=== PATIENT | female | born 1975 | race Caucasian/White ===

== ENCOUNTER 2017-07-13 11:08 | Emergency (ER) | payer SELFPAY ==
[2017-07-13 11:24] VITALS: BP 147/86
--- NOTE | 2017-07-13 11:26 | UC ---
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 the [employer] - History of Current Complaint Chief Complaint: UCBackPain Stated Complaint: BACK INJURY WC Time Seen by Provider: 07/13/17 11:18 Hx Obtained From: Patient Hx Last Menstrual Period: 07/08/17 ?: No Onset/Duration: Sudden Onset, Lasting Days - 1, Still Present Timing: Constant Severity Initially: Moderate Severity Currently: Moderate Pain Intensity: 8 Pain Scale Used: 0-10 Numeric Back Pain: Is Discrete @ - left side of spine Character: Aching, Throbbing, Spasmodic, Stiffness Aggravating: Movement Alleviating: Rest Related History: Occupational Injury - Allergies/Home Medications Allergies/Adverse Reactions: Allergies Allergy/AdvReac Type Severity Reaction Status Date / Time Sulfamethoxazole Allergy Severe Hives Verified 07/13/17 11:24 w/Trimethoprim [From ] PMH/Surg Hx/FS Hx/Imm Hx Previously Healthy: No Neurological History: Migraine Psychological History: Depression Other History Of: Negative For: HIV, Hepatitis B, Hepatitis C, Anticoagulant Therapy - Surgical History Surgical History: Yes Surgery Procedure, Year, and Place: eyes at age 2.5 yrs old (muscle correction for crossed eyes),TUBAL LIGATION. REMOVAL OF FIBROID UTERINE TUMOR - Family History Known Family History: Positive: None, Hypertension - Social History Occupation: Employed Full-time Lives: With Family Alcohol Use: None Substance Use Type: None Smoking Status (MU): Current Every Day Smoker Type: Cigarettes Amount Used/How Often: 1 PPD Have You Smoked in the Last Year: Yes Household Exposure Type: Cigarettes Review of Systems Constitutional: Negative Skin: Negative Eyes: Negative ENT: Negative Respiratory: Negative Cardiovascular: Negative Gastrointestinal: Negative Genitourinary: Negative Motor: Negative Neurovascular: Negative Musculoskeletal: Myalgia - left side of thorasic lumbar spine Neurological: Negative Psychological: Negative Is Patient Immunocompromised?: Yes All Other Systems Reviewed And Are Negative: Yes Physical Exam Triage Information Reviewed: Yes Appearance: Well-Appearing, Well-Nourished, Pain Distress Vital Signs: Initial Vital Signs Temp 98.3 F 07/13/17 11:17 Pulse 59 07/13/17 11:17 Resp 24 07/13/17 11:17 BP 147/86 07/13/17 11:17 Vital Signs Reviewed: Yes Eye Exam: Normal Eyes: Positive: Conjunctiva Clear ENT Exam: Normal ENT: Positive: Normal ENT inspection, Hearing grossly normal. Negative: Nasal congestion, Nasal drainage, Trismus, Muffled/hoarse voice Neck exam: Normal Neck: Positive: Supple, Nontender, No Lymphadenopathy Respiratory Exam: Normal Respiratory: Positive: Chest non-tender, Lungs clear, Normal breath sounds, No respiratory distress, No accessory muscle use Cardiovascular Exam: Normal Cardiovascular: Positive: RRR, No Murmur, Pulses Normal, Brisk Capillary Refill Abdominal Exam: Normal Musculoskeletal Exam: Normal Musculoskeletal: Positive: Strength Intact, No Edema, ROM Limited @ - twisting back is limited Neurological Exam: Normal Neurological: Positive: Alert, Muscle Tone Normal Psychological Exam: Normal Psychological: Positive: Normal Response To Family Skin Exam: Normal Back Pain Course/Dx - Course Course Of Treatment: nsaids, muscle relaxers, follow with PT and or Chiropractor follow with pcp if fails to resolve in next 3-4 days - Differential Dx/Diagnosis Differential Diagnosis/HQI/PQRI: Arthritis, Strain, Sprain Provider Diagnoses: thoraco-lumbar muscle strain Discharge - Discharge Plan Condition: Stable Disposition: HOME Prescriptions: Ibuprofen TAB* [Motrin TAB* 600 MG] 600 mg PO Q6H PRN #30 tab PRN Reason: Pain Tizanidine HCl [Zanaflex] 2 - 4 mg PO Q6H PRN #40 cap PRN Reason: muscle spasm Patient Education Materials: Acute Low Back Pain (ED), Muscle Spasm (ED), Lower Back Exercises (ED) Forms: *Work Release Referrals: Kim Gotti PA [Primary Care Provider] - If Needed
[2017-07-13] MEDS ORDERED: Ibuprofen TAB* 600 MG PO ONE (11:36)
== END 2017-07-13 12:16 | disposition home or self-care (01) ==
LOC: UCCORT 11:08
DX: S39.012A Strain of muscle, fascia and tendon of lower back, initial encounter (principal); X50.1XXA Overexertion from prolonged static or awkward postures, initial encounter; Y93.89 Activity, other specified; Y92.242 Post office as the place of occurrence of the external cause; Y99.0 Civilian activity done for income or pay; G43.909 Migraine, unspecified, not intractable, without status migrainosus; F32.9 Major depressive disorder, single episode, unspecified; Z88.2 Allergy status to sulfonamides; F17.210 Nicotine dependence, cigarettes, uncomplicated
CPT/HCPCS: 99212; A9270-GY; G0463

== ENCOUNTER 2017-08-21 17:16 | Emergency (ER) | payer OTHER ==
--- NOTE | 2017-08-21 17:39 | UC ---
Dizzy HPI HPI Summary: 42 year old female with dizziness. sx started today--face feels really hot, gets red, dizziness, denies respiratory sx, no GI sx, no urinary sx. 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 Did not fall over or feel like she would . No CP/SOB/[place]INT[place]. No vision changes. No presyncope. Has not had a lot of water today and has had post nasal drip lately. [ End ] - History Of Current Complaint Chief Complaint: UCGeneralIllness Stated Complaint: DIZZY HEADACHE Time Seen by Provider: 08/21/17 17:28 Hx Obtained From: Patient Hx Last Menstrual Period: 08/03/17 Onset/Duration: Sudden Onset - Allergies/Home Medications Allergies/Adverse Reactions: Allergies Allergy/AdvReac Type Severity Reaction Status Date / Time Sulfamethoxazole Allergy Severe Hives Verified 08/21/17 17:25 w/Trimethoprim [From ] PMH/Surg Hx/FS Hx/Imm Hx Previously Healthy: Yes Neurological History: Migraine Psychological History: Anxiety, Depression Other History Of: Negative For: HIV, Hepatitis B, Hepatitis C, Anticoagulant Therapy - Surgical History Surgical History: Yes Surgery Procedure, Year, and Place: eyes at age 2.5 yrs old (muscle correction for crossed eyes),TUBAL LIGATION. 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 Alcohol Use: None Substance Use Type: None Smoking Status (MU): Heavy Every Day Tobacco Smoker Type: Cigarettes Amount Used/How Often: 1 PPD Have You Smoked in the Last Year: Yes Household Exposure Type: Cigarettes Cessation Counseling: Patient Advised to Stop - Immunization History Most Recent Influenza Vaccination: none Review of Systems Constitutional: Negative Skin: Negative Eyes: Negative ENT: Sinus Congestion - post nasal drip Respiratory: Negative Cardiovascular: Negative Gastrointestinal: Negative Genitourinary: Negative Motor: Negative Neurovascular: Negative Musculoskeletal: Negative Neurological: Other - lightheadedness Psychological: Negative All Other Systems Reviewed And Are Negative: Yes Physical Exam Triage Information Reviewed: Yes Appearance: Well-Appearing, No Pain Distress, Well-Nourished Vital Signs: Initial Vital Signs Temp 98.2 F 08/21/17 17:18 Pulse 66 08/21/17 17:18 Resp 16 08/21/17 17:18 BP 137/89 08/21/17 17:18 Pulse Ox 99 08/21/17 17:18 Vital Signs Reviewed: Yes Eye Exam: Normal ENT Exam: Normal ENT: Positive: TM dull - left Dental Exam: Normal Neck exam: Normal Neck: Positive: 1 Respiratory Exam: Normal Cardiovascular Exam: Normal Abdominal Exam: Normal Musculoskeletal Exam: Normal Neurological Exam: Normal Psychological Exam: Normal Skin Exam: Normal Diagnostics - EKG Cardiac Rate: NL Cardiac Rhythm: Sinus: Normal Ectopy: None ST Segment: Normal Dizzy Course/Dx - Course Course Of Treatment: Discussed risk factors she has and concern for future FL / CVA and she is aware. EKG shows NSR. VSS. No acute concerns. If Sx return then go to ED for further work up . Discussed ED at this time and she declined. Will call Michelle Gotti for f/u. - Differential Dx/Diagnosis Differential Diagnosis/HQI/PQRI: Anxiety, Benign Paroxysmal Positional Vertigo, Dysrhythmia, Labyrinthitis, Transient Ischemic Attack, Vasovagal Reaction Provider Diagnoses: BPPV Discharge - Discharge Plan Condition: Good Disposition: HOME Prescriptions: Meclizine TAB* [Antivert 12.5 TAB*] 12.5 mg PO TID PRN #15 tab PRN Reason: lightheaded Patient Education Materials: Dizziness (ED) Referrals: Kim Gotti PA [Primary Care Provider] - 3 Days Additional Instructions: YOUR EKG WAS NORMAL. IF YOUR SYMPTOMS RETURN PLEASE GO TO THE EMERGENCY ROOM . GOOD LUCK QUITTING SMOKING !
[2017-08-21 17:59] VITALS: BP 129/82
== END 2017-08-21 18:18 | disposition home or self-care (01) ==
LOC: UCCORT 17:16
DX: H81.10 Benign paroxysmal vertigo, unspecified ear (principal); F17.210 Nicotine dependence, cigarettes, uncomplicated; Z71.6 Tobacco abuse counseling; Z88.2 Allergy status to sulfonamides; Z88.1 Allergy status to other antibiotic agents
CPT/HCPCS: 93005; 99212; G0463

== ENCOUNTER 2018-06-18 21:14 | Emergency (ER) | payer MEDICAID, OTHER ==
[2018-06-18 21:37] VITALS: BP 126/81
--- NOTE | 2018-06-18 21:39 | UC ---
Ear Complaint HPI - HPI Summary HPI Summary: pt c/o R ear pain x 3 days. no uri, fever, injury of drainage. - History of Current Complaint Chief Complaint: UCEar Stated Complaint: RT EAR PAIN Time Seen by Provider: 06/18/18 21:24 Hx Obtained From: Patient Hx Last Menstrual Period: 08/03/17 Onset/Duration: Gradual Onset Aggravating Factors: Nothing Alleviating Factors: Nothing Associated Signs/Symptoms: Negative: Discharge, Hearing Loss, Foreign Body Sensation, Trauma to Ear, Swelling @ - Allergies/Home Medications Allergies/Adverse Reactions: Allergies Allergy/AdvReac Type Severity Reaction Status Date / Time sulfamethoxazole Allergy Severe Hives Verified 06/18/18 21:26 [From Bactrim] trimethoprim [From Bactrim] Allergy Severe Hives Verified 06/18/18 21:26 Home Medications: Home Medications Gabapentin CAP(*) [Neurontin 300 CAP(*)] 1 cap QID 06/18/18 [History Confirmed 06/18/18] HYDROcodone/ACETAMIN 5-325 MG* [[place] 5-325 TAB*] 1 tab Q4HR PRN 06/18/18 [ History Confirmed 06/18/18] Ibuprofen TAB* [Motrin TAB* 600 MG] 800 mg PO Q6H PRN 06/18/18 [History Confirmed 06/18/18] buPROPion TAB* [Wellbutrin TAB*] 1 tab DAILY 06/18/18 [History Confirmed ] PMH/Surg Hx/FS Hx/Imm Hx - Additional Past Medical History Additional PMH: chronic pain (back, hamstring) Respiratory History: Asthma Neurological History: Migraine Psychological History: Anxiety Other History Of: Negative For: HIV, Hepatitis B, Hepatitis C, Anticoagulant Therapy - Surgical History Surgical History: Yes Surgery Procedure, Year, and Place: eyes at age 2.5 yrs old (muscle correction for crossed eyes),TUBAL LIGATION. 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 - Family History Known Family History: Positive: None, Cardiac Disease - mom has had [place], Hypertension - Social History Lives: With Family Alcohol Use: None Substance Use Type: None Smoking Status (MU): Heavy Every Day Tobacco Smoker Type: Cigarettes Amount Used/How Often: 1 PPD Have You Smoked in the Last Year: Yes Household Exposure Type: Cigarettes - Immunization History Most Recent Influenza Vaccination: none Review of Systems Constitutional: Negative Skin: Negative Eyes: Negative ENT: Ear Ache - R Respiratory: Negative Cardiovascular: Negative Gastrointestinal: Negative Genitourinary: Negative Motor: Negative Neurovascular: Negative Musculoskeletal: Other: - chronic back and leg pain Neurological: Negative Psychological: Negative Is Patient Immunocompromised?: No All Other Systems Reviewed And Are Negative: Yes Physical Exam Triage Information Reviewed: Yes Appearance: Well-Appearing Vital Signs Reviewed: Yes Eyes: Positive: Conjunctiva Clear ENT: Positive: Pharynx normal, TMs normal - canals are clear. no pain with auricular tug., Other - No mastoid tenderness or auricular adenopathy. Negative : Nasal congestion, Nasal drainage Neck: Positive: Supple, Nontender, No Lymphadenopathy Respiratory: Positive: Lungs clear, Normal breath sounds Cardiovascular: Positive: RRR, No Murmur Abdomen Description: Positive: Nontender, No Organomegaly, Soft Bowel Sounds: Positive: Present Musculoskeletal: Positive: ROM Intact Neurological: Positive: Alert Psychological: Positive: Normal Response To Family, Age Appropriate Behavior Skin Exam: Normal Ear Complaint Course/Dx - Course Course Of Treatment: non toxic. no signs of OM, OE or mastoiditis. will tx with a decongestatnt and nasal steroid spray for a possible eustachian tube dysfunction. pt advised of need for close f/u / recheck. pt advised to f/u immediately for any changes or worsening. - Differential Dx/Diagnosis Provider Diagnoses: Otalgia R Discharge - Sign-Out/Discharge Documenting (check all that apply): Patient Departure All imaging exams completed and their final reports reviewed: No Studies - Discharge Plan Condition: Stable Disposition: HOME Patient Education Materials: Earache (ED) Referrals: Juana Epps MD [Primary Care Provider] - 5 Days Additional Instructions: START A DECONGESTANT PER LABEL. START FLONASE OR NASACORT PER LABEL - Billing Disposition and Condition Condition: STABLE Disposition: Home
== END 2018-06-18 21:42 | disposition home or self-care (01) ==
LOC: UCCORT 21:14
DX: H92.01 Otalgia, right ear (principal); Z88.1 Allergy status to other antibiotic agents; F41.9 Anxiety disorder, unspecified; G89.29 Other chronic pain; M54.9 Dorsalgia, unspecified; M79.659 Pain in unspecified thigh; F17.210 Nicotine dependence, cigarettes, uncomplicated
CPT/HCPCS: 99211; G0463

== ENCOUNTER 2018-09-12 19:10 | Emergency (ER) | payer MEDICAID, OTHER ==
[2018-09-12 19:53] VITALS: BP 126/82
[2018-09-12] MEDS ORDERED: Albuterol/Ipratropium NEB.SOL* Albuterol 2.5 MG/Ipratropium 0.5 MG 3 ML INH ONE (20:10)
[2018-09-12] MEDS ORDERED: predniSONE TAB* 20 MG PO ONE (20:10)
--- NOTE | 2018-09-12 20:10 | UC ---
Respiratory Complaint HPI - HPI Summary HPI Summary: Cough x 2 weeks. Feels SOB. Hemoptysis. Smoking 1 PPD. - History of Current Complaint Chief Complaint: UCRespiratory Stated Complaint: COUGH, DIARRHEA, HEADACHE Time Seen by Provider: 09/12/18 20:00 Hx Obtained From: Patient Hx Last Menstrual Period: 09/07/18 ?: No Onset/Duration: Gradual Onset, Lasting Weeks - 2, Still Present Timing: Constant Pain Intensity: 5 Character: Cough: Productive - with the bloody sputum Aggravating Factors: Deep Breaths, Recumbent Position Alleviating Factors: Nothing Associated Signs And Symptoms: Positive: Chills, URI, Nasal Congestion, Sinus Discomfort Related History: Seasonal Allergies - Risk Factors Pulmonary Embolism Risk Factors: Smoking Cardiac Risk Factors: Smoking, Prior [place] - Allergies/Home Medications Allergies/Adverse Reactions: Allergies Allergy/AdvReac Type Severity Reaction Status Date / Time sulfamethoxazole Allergy Severe Hives Verified 09/12/18 19:53 [From Bactrim] trimethoprim [From Bactrim] Allergy Severe Hives Verified 09/12/18 19:53 PMH/Surg Hx/FS Hx/Imm Hx Neurological History: Migraine Psychological History: Anxiety Other History Of: Negative For: HIV, Hepatitis B, Hepatitis C, Anticoagulant Therapy - Surgical History Surgical History: Yes Surgery Procedure, Year, and Place: eyes at age 2.5 yrs old (muscle correction for crossed eyes),TUBAL LIGATION. 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, R leg hamstring repair - Family History Known Family History: Positive: Cardiac Disease - mom has had [place], Hypertension, Diabetes - Social History Occupation: Disabled Lives: With Family Alcohol Use: None Substance Use Type: None Smoking Status (MU): Heavy Every Day Tobacco Smoker Type: Cigarettes Amount Used/How Often: 1 PPD Have You Smoked in the Last Year: Yes Household Exposure Type: Cigarettes Cessation Counseling: Patient Advised to Stop - Immunization History Most Recent Influenza Vaccination: none Review of Systems All Other Systems Reviewed And Are Negative: Yes Constitutional: Positive: Chills, Fatigue ENT: Positive: Nasal Discharge, Sinus Pain/Tenderness Respiratory: Positive: Shortness Of Breath, Cough Gastrointestinal: Positive: Vomiting - post tussive emesis Physical Exam Triage Information Reviewed: Yes Appearance: Ill-Appearing, Pain Distress - with coughing, Obese Vital Signs: Initial Vital Signs Temp 97.8 F 09/12/18 19:50 Pulse 77 09/12/18 19:50 Resp 20 09/12/18 19:50 BP 126/82 09/12/18 19:50 Pulse Ox 99 09/12/18 19:50 Eyes: Positive: Conjunctiva Inflamed ENT: Positive: Pharynx normal, Nasal congestion, TMs normal Respiratory: Positive: Wheezing - diffuse moderate expiratory wheezes Cardiovascular Exam: Normal Musculoskeletal Exam: Normal Neurological Exam: Normal Psychological Exam: Normal Skin Exam: Normal UC Diagnostic Evaluation - Laboratory O2 Sat by Pulse Oximetry: 99 - Radiology Radiology Interpretation Completed By: ED Physician Summary of Radiographic Findings: RML pneumonia Respiratory Course/Dx - Differential Dx/Diagnosis Differential Diagnosis/HQI/PQRI: Bronchitis, Lower Resp Infection, Sinusitis Provider Diagnoses: Pneumonia. Acute bronchospasm. Acute sinusitis Discharge - Sign-Out/Discharge Documenting (check all that apply): Patient Departure All imaging exams completed and their final reports reviewed: No - Discharge Plan Condition: Stable Disposition: HOME Prescriptions: DOXYcycline CAP(*) [DOXYcycline 100MG CAP(*)] 100 mg PO BID #20 cap predniSONE TAB* [Deltasone 20 MG TAB*] 60 mg PO DAILY #18 tab Patient Education Materials: Community Acquired Pneumonia (ED), Doxycycline ( By mouth), Bronchospasm (ED), Prednisone (By mouth) Referrals: Juana Epps MD [Primary Care Provider] - (10 days recheck breathing. 1 month recheck chest xray to show clearing of the pneumonia) Additional Instructions: Smoking Cessation Tricks. 1. Cut down by 1 cigarette per day every 2-3 days. Write the number of smokes for that day on the calendar. 2. Identify triggers to smoking: after meals, on the phone, in the car, with coffee, on breaks at work, etc. 3. Formulate a plan with a behavior to replace the smoking. Fireballs in the car , doodle pad on the phone, flavored creamer for the coffee, go for a walk after a meal or on break at work. 4. For stress smokes do deep breathing relaxation. Breath deep in through the nose hold the breath in for a few seconds then breath out slowly through the mouth. - Billing Disposition and Condition Condition: STABLE Disposition: Home
[2018-09-12] MEDS ORDERED: DOXYcycline CAP(*) 100 MG PO ONE (20:49)
[2018-09-12] MEDS ORDERED: Albuterol HFA INHALER* 8 gm MDI INH ONE (20:52)
--- NOTE | 2018-09-13 08:57 | UC ---
- Progress Note Progress Note: Patient Name: SIMA DE LEON Medical Record#: [id number] Ordering Physician: Leo Smart MD Acct.#: [id number] : 1975 Age: 43 Sex: F Location: [facility] Exam Date: 09/12/182024 ADM Status: [facility] Order Information: CHEST PA & LAT 2 VWS Accession Number: [id number] CPT: 09613 INDICATION: Hemoptysis and shortness of breath COMPARISON: KUB dated July 07, 2014 TECHNIQUE: PA and lateral views of the chest were obtained. FINDINGS: The heart and mediastinum are normal in size and contour. On the AP view there is a density along the medial aspect of the right lower lung that obscures the right heart border indicating it is located in the right middle lobe. This appearance is similar to the KUB dated July 07, 2014. Otherwise the visualized lungs are clear. Visualized bones are normal for the patient's age. There is no radiographic evidence of free air beneath the diaphragm IMPRESSION: THERE IS A DENSITY THAT OBSCURES THE RIGHT HEART BORDER INDICATING POSSIBLE PNEUMONIA AT THE RIGHT MIDDLE LOBE. THIS APPEARANCE IS SIMILAR TO THE 2013 KUB. THIS CHRONIC FINDING COULD EITHER BE RECURRENCE OF RIGHT MIDDLE LOBE PNEUMONIA OR SOME OTHER MEDIAL RIGHT LUNG BASE MASS, FOR EXAMPLE HIATAL HERNIA. SUPERIOR CHARACTERIZATION CAN BE MADE WITH CONTRAST-ENHANCED CT OF THE CHEST IF CLINICALLY WARRANTED. R0 Preliminary Imaging Read NO DISCREPANCY <Electronically signed by West Castillo MD in OV> 09/13/18 0753 Dictated By: West Castillo MD Dictated Date/Time: 09/13/18 0753 Transcribed Date/Time: 09/13/18 0747 Copy to: CC:Juana Epps MD; Leo Smart MD This report is only to be considered final once signed by the Provider(s) as displayed in the "<Electronically Signed by >" field (s). Absence of a signature indicates the report is in a draft status and still needs to be finalized. In the event this document was created by someone other than the signing Provider, the individual initiating the document will be listed in the "Entered by:" or "Dictated by:" meneses. 1 of 2 Discharge - Sign-Out/Discharge Documenting (check all that apply): Post-Discharge Follow Up All imaging exams completed and their final reports reviewed: Yes - Discharge Plan Condition: Stable Disposition: HOME Prescriptions: DOXYcycline CAP(*) [DOXYcycline 100MG CAP(*)] 100 mg PO BID #20 cap predniSONE TAB* [Deltasone 20 MG TAB*] 60 mg PO DAILY #18 tab Patient Education Materials: Doxycycline (By mouth), Prednisone (By mouth), Community Acquired Pneumonia (ED), Bronchospasm (ED) Referrals: Juana Epps MD [Primary Care Provider] - (10 days recheck breathing. 1 month recheck chest xray to show clearing of the pneumonia) Additional Instructions: Smoking Cessation Tricks. 1. Cut down by 1 cigarette per day every 2-3 days. Write the number of smokes for that day on the calendar. 2. Identify triggers to smoking: after meals, on the phone, in the car, with coffee, on breaks at work, etc. 3. Formulate a plan with a behavior to replace the smoking. Fireballs in the car , doodle pad on the phone, flavored creamer for the coffee, go for a walk after a meal or on break at work. 4. For stress smokes do deep breathing relaxation. Breath deep in through the nose hold the breath in for a few seconds then breath out slowly through the mouth. - Billing Disposition and Condition Condition: STABLE Disposition: Home
== END 2018-09-12 21:04 | disposition home or self-care (01) ==
LOC: UCCORT 19:10
DX: J18.9 Pneumonia, unspecified organism (principal); J98.01 Acute bronchospasm; J01.90 Acute sinusitis, unspecified; Z88.2 Allergy status to sulfonamides; F17.210 Nicotine dependence, cigarettes, uncomplicated
CPT/HCPCS: 71046; 99213; A9270-GY; G0463; J7512

== ENCOUNTER 2019-01-07 18:11 | Emergency (ER) | payer OTHER ==
[2019-01-07 18:22] VITALS: BP 140/83
--- NOTE | 2019-01-07 18:40 | ED ---
HPI Chest Pain - HPI Summary HPI Summary: 44 yr old female with the complaint of chest pain. Onset of chest pain at 1600 today, pain is 8/10, radiates into her back, and associated with SOB, nausea. She is a smoker. She has a family history of CAD and Stroke. She has never had chest pain before. - History of Current Complaint Chief Complaint: UCChestPain Time Seen by Provider: 01/07/19 18:20 Hx Last Menstrual Period: 01/03/19 Pain Intensity: 8 - Allergy/Home Medications Allergies/Adverse Reactions: Allergies Allergy/AdvReac Type Severity Reaction Status Date / Time sulfamethoxazole Allergy Severe Hives Verified 09/12/18 19:53 [From Bactrim] trimethoprim [From Bactrim] Allergy Severe Hives Verified 09/12/18 19:53 Home Medications: Home Medications Metoprolol Succinate [Toprol Xl] 25 mg PO DAILY 01/07/19 [History Confirmed ] PMH/Surg Hx/FS Hx/Imm Hx Endocrine/Hematology History: Reports: Hx Thyroid Disease Denies: Hx Anticoagulant Therapy, Hx Diabetes Cardiovascular History: Reports: Hx Hypertension Denies: Hx Congestive Heart Failure, Hx Deep Vein Thrombosis, Hx Myocardial Infarction, Hx Pacemaker/ICD Respiratory History: Reports: Hx Asthma Denies: Hx Chronic Obstructive Pulmonary Disease (COPD), Hx Lung Cancer, Hx Pneumonia, Hx Pulmonary Embolism GI History: Denies: Hx Gall Bladder Disease, Hx Gastrointestinal Bleed, Hx Ulcer, Hx Urosepsis History: Denies: Hx Kidney Stones, Hx Renal Disease Sensory History: Denies: Hx Hearing Aid Neurological History: Reports: Hx Migraine Denies: Hx Dementia, Hx Seizures, Hx Transient Ischemic Attacks (TIA) Psychiatric History: Reports: Hx Depression Denies: Hx Anxiety, Hx Panic Disorder, Hx Schizophrenia, Hx Bipolar Disorder - Surgical History Surgery Procedure, Year, and Place: eyes at age 2.5 yrs old (muscle correction for crossed eyes),TUBAL LIGATION. 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, R leg hamstring repair Infectious Disease History: Yes Infectious Disease History: Reports: Hx of Known/Suspected MRSA Denies: Hx Clostridium Difficile, Hx Hepatitis, Hx Human Immunodeficiency Virus (HIV), Hx Shingles, Hx Tuberculosis, Hx Known/Suspected VRE, Hx Known/ Suspected VRSA, History Other Infectious Disease, Traveled Outside the [place] in Last 30 Days - Family History Known Family History: Positive: None, Cardiac Disease - mom has had AL, Hypertension, Diabetes - Social History Occupation: Disabled Lives: With Family Alcohol Use: None Substance Use Type: Reports: None Smoking Status (MU): Heavy Every Day Tobacco Smoker Type: Cigarettes Amount Used/How Often: 1 PPD Have You Smoked in the Last Year: Yes Review of Systems Constitutional: Negative Positive: Chest Pain Positive: Shortness Of Breath All Other Systems Reviewed And Are Negative: Yes Physical Exam Triage Information Reviewed: Yes Vital Signs On Initial Exam: Initial Vitals Temp Pulse Resp BP Pulse Ox 96.6 F 61 20 140/83 100 01/07/19 18:15 01/07/19 18:15 01/07/19 18:15 01/07/19 18:15 01/07/19 18:15 Vital Signs Reviewed: Yes Appearance: Positive: Well-Appearing, No Pain Distress Skin: Positive: Warm, Skin Color Reflects Adequate Perfusion Head/Face: Positive: Normal Head/Face Inspection Eyes: Positive: EOMI, MARIVEL ENT: Positive: Normal ENT inspection Neck: Positive: Nontender Respiratory/Lung Sounds: Positive: Clear to Auscultation, Breath Sounds Present Cardiovascular: Positive: RRR. Negative: Murmur Abdomen Description: Positive: Nontender. Negative: Distended Musculoskeletal: Positive: Strength/ROM Intact. Negative: Edema Left, Edema Right Neurological: Positive: Sensory/Motor Intact, Alert, Oriented to Person Place, Time, CN Intact II-III, Normal Gait, Speech Normal Psychiatric: Positive: Normal - Ashok Coma Scale Best Eye Response: 4 - Spontaneous Best Motor Response: 6 - Obeys Commands Best Verbal Response: 5 - Oriented Coma Scale Total: 15 Diagnostics - Vital Signs Vital Signs Temp Pulse Resp BP Pulse Ox 01/07/19 18:15 96.6 F 61 20 140/83 100 - Laboratory Lab Statement: Any lab studies that have been ordered have been reviewed, and results considered in the medical decision making process. - EKG 01/07/19 Cardiac Rate: Bradycardia EKG Rhythm: Sinus Bradycardia ST Segment: Normal Ectopy: None Chest Pain Course/Dx - Course Course Of Treatment: 44 yr old with chest pain. She refuses ambulance transport to the ER for further work up. - Diagnoses Provider Diagnoses: Chest pain, Hypertension Discharge - Sign-Out/Discharge Documenting (check all that apply): Patient Departure All imaging exams completed and their final reports reviewed: No Studies - Discharge Plan Condition: Good Disposition: AGAINST MEDICAL ADVICE Referrals: Juana Epps MD [Primary Care Provider] - - Billing Disposition and Condition Condition: GOOD Disposition: Against Medical Advice
== END 2019-01-07 18:42 | disposition left against medical advice (07) ==
LOC: UCCORT 18:11
DX: R07.9 Chest pain, unspecified (principal); I10 Essential (primary) hypertension; M54.9 Dorsalgia, unspecified; F17.210 Nicotine dependence, cigarettes, uncomplicated; Z86.79 Personal history of other diseases of the circulatory system; Z88.2 Allergy status to sulfonamides
CPT/HCPCS: 93005; 99212; G0463